=== PATIENT | male | born 2000 | race Hispanic/Latino ===

== ENCOUNTER 2020-02-02 | Emergency (ER) | payer BC ==
[~2020-02-02] MED LIST: AMOXIL400 MG/5 M OR; RONDEC-DM OR
[2020-02-02 17:00] LABS: IMMATURE GRANULOCYTES 0.2 % (0.0-5.0); MEAN CORPUSCULAR HGB CONC 33.2 g/L CALC (32.0-36.0); NEUT# 2.64 thou/uL (1.82-7.42); RED BLOOD COUNT 4.66 mill/uL (4.70-6.10); RED CELL DISTRI WIDTH 12.1 % (11.5-15.5)
[2020-02-02 17:01] LABS: HEMATOCRIT 42.2 % (39.0-50.0); MEAN CELL VOLUME 90.6 fL CALC (80.0-100.0)
[2020-02-02 17:29] LABS: BUN 14 mg/dL (9-20); BUN/CREATININE RATIO 20 (12-20 (CALC)); CHLORIDE 100 mmol/l (95-108); CREATININE 0.7 mg/dL (0.7-1.3); GFR > 60 ML/MIN (>=60 (CALC)); GFR FOR AFR.AMER. > 60 ML/MIN (>=60 (CALC)); SODIUM 137 mmol/l (137-146)
[2020-02-02 17:30] LABS: ANION GAP 14 (6-22 (CALC)); CARBON DIOXIDE 27 mmol/l (22-30)
== END 2020-02-02 18:11 | disposition home or self-care (01) | DRG 313 ==
PROVIDERS: Family Medicine
DX: R07.9 Chest pain, unspecified (principal)